=== PATIENT | male | born 1970 | race Caucasian/White ===

== ENCOUNTER 2017-12-01 19:17 | Emergency (ER) | payer MEDICAID ==
[~2017-12-01] VITALS: Ht 188 cm; Wt 93.7 kg
[2017-12-01 19:27] VITALS: BP 149/90
== END 2017-12-01 21:05 | disposition home or self-care (01) ==
LOC: ED 21:00
DX: M19.071 Primary osteoarthritis, right ankle and foot (principal); M19.072 Primary osteoarthritis, left ankle and foot; L40.0 Psoriasis vulgaris; F15.20 Other stimulant dependence, uncomplicated; I10 Essential (primary) hypertension; E11.9 Type 2 diabetes mellitus without complications; F17.200 Nicotine dependence, unspecified, uncomplicated; Z59.0 Homelessness
CPT/HCPCS: 99284

== ENCOUNTER 2018-11-06 16:13 | Inpatient (IN) | payer MEDICAID ==
[2018-11-05] MEDS: CEFTRIAXONE PMX 2GM/50ML 50 ML IV SCH (02:00)
[~2018-11-06] VITALS: Ht 188 cm; Wt 128.0 kg
[2018-11-06] MEDS ORDERED: HYDROmorphone 2 MG/ML, 1ML ONE (16:49)
[2018-11-06] MEDS ORDERED: MORPHINE SULFATE 4 MG/ML, 1ML IVPush PRN (17:00)
[2018-11-06] MEDS ORDERED: ONDANSETRON 2MG/ML, 2ML IVPush ONE (17:00)
[2018-11-06] MEDS ORDERED: HYDROmorphone 2 MG/ML, 1ML IM ONE (17:00)
[2018-11-06] MEDS ORDERED: SODIUM CHLORIDE FLUSH 10ML SYR IVF ONE (17:00)
--- NOTE | 2018-11-06 17:02 | NUR ---
REPORT FROM YARY CAMACHO RN. ASSUMED CARE OF PATIENT AT THIS TIME. PATIENT PRESENTS TO ED TODAY FOR ABD PAIN WITH NAUSEA, DENIES VOMITING/DIARRHEA. PATIENT GIVEN PAIN MEDICATION IM BY YARY RN. AWAITING PAIN MEDICATION TO HELP PRIOR TO STARTING IV. NO ADDITIONAL NEEDS AT THIS TIME.
[2018-11-06 17:09] LABS: ALANINE AMINOTRANSFERASE 47 U/L (12-78); ALBUMIN 4.5 g/dL (3.4-5.0); ANION GAP 10 mmol/L (5-15); CALCIUM 9.5 mg/dL (8.5-10.1); CHLORIDE 109 mmol/L (98-107); CREATININE 1.07 mg/dL (0.7-1.3); MEAN CORPUSCULAR HEMOGLOBIN 29.2 pg (27.5-34.5); MEAN CORPUSCULAR HGB CONC 33.5 g/dL (33.2-36.2); MEAN CORPUSCULAR VOLUME 87.2 fL (81-97); MEAN PLATELET VOLUME 8.1 fL (7.4-10.4); PLATELET COUNT 296 x10^3/uL (130-400); RED BLOOD COUNT 5.74 x10^6/uL (4.38-5.82)
[2018-11-06 17:12] LABS: ALKALINE PHOSPHATASE 78 U/L (45-117); BILIRUBIN,TOTAL 0.6 mg/dL (0.2-1.0); TOTAL PROTEIN 8.1 g/dL (6.4-8.2)
--- NOTE | 2018-11-06 17:12 | NUR ---
PATIENT IN CT, CT CALLED REGARDING NO IV STARTED AT THIS TIME, CT STARTING IV FOR CT SCAN. AWAITING PATIENT TO ARRIVE BACK IN DEPARTMENT PRIOR TO GIVING MEDICATIONS.
[2018-11-06] MEDS ORDERED: NITROGLYCERIN SINGLE TAB 0.4 MG SL ONE (17:30)
[2018-11-06] MEDS ORDERED: ASPIRIN 81 MG TABLET CHEW PO ONE (17:30)
[2018-11-06] MEDS ORDERED: OMNIPAQUE 350 MG/ML, 100ML BOTTLE ONE (17:43)
[2018-11-06 17:45] LABS: BASOPHILS # (AUTO) 0.09 x10^3/uL (0-0.1); BASOPHILS % (AUTO) 1 % (0-1); EOSINOPHILS % (AUTO) 1 % (1-7); LYMPHOCYTES % (AUTO) 14 % (22-44); MD SCAN; MONOCYTES % (AUTO) 3 % (2-9); NEUTROPHILS # (AUTO) 15.34 x10^3/uL (1.8-6.8); NEUTROPHILS % (AUTO) 82 % (42-75)
[2018-11-06 17:48] LABS: INTERNATIONAL NORMALIZED RATIO 0.99 (0.93-1.1); PROTHROMBIN TIME 10.4 Seconds (9.6-11.5)
[2018-11-06] MEDS ORDERED: HEPARIN 25,000 UNITS/500ML PMX 500 ML IV PRN (18:00)
[2018-11-06] MEDS ORDERED: HEPARIN 5,000 UNITS/ML, 1ML IV ONE (18:00)
[2018-11-06] MEDS ORDERED: HEPARIN 5,000 UNITS/ML, 1ML IV PRN (18:00)
--- NOTE | 2018-11-06 18:02 | NUR ---
PATIENT BACK FROM CT, PATIENT REPORTS PAIN NOW A 3/10, DOWN FROM 10/10, VS UPDATED IN CHART, IV ESTABLISHED IN CT, AWAITING RESULTS. PATIENT SITTING IN GURNEY SPEAKING WITH FAMILY AT BEDSIDE, CALL LIGHT WITHIN REACH.
--- NOTE | 2018-11-06 18:24 | NUR ---
RESULTS BACK, CHART UP FOR RECHECK.
[2018-11-06] MEDS ORDERED: MORPHINE SULFATE 4 MG/ML, 1ML ONE (19:00)
--- NOTE | 2018-11-06 19:08 | NUR ---
PATIENT AMB WITH STEADY GAIT TO BATHROOM, PATIENT BACK TO BED, PATIENT REPORTS PAIN 5/10 AT THIS TIME, MORPHINE ADMINISTERED PER MD ORDER, VS UPDATED IN CHART, ADMIT ORDER IN, AWAITING BED ASSIGNMENT. PATIENT SITTING IN [facility].
--- NOTE | 2018-11-06 19:10 | NUR ---
called sukh from [facility] transfer center. They are refusing this patient for transfer.
--- NOTE | 2018-11-06 19:11 | NUR ---
Elvira from [facility] called for admission transfer. They are refusing this pt.
--- NOTE | 2018-11-06 19:56 | NUR ---
REPORT TO RAFAEL LAM.
--- NOTE | 2018-11-06 20:06 | NUR ---
PATIENT BEING TRANSFERRED/ADMITTED TO HOSPITAL BED AT THIS TIME.
[2018-11-06 20:35] VITALS: BP 139/93
[2018-11-06] MEDS ORDERED: morphine SULFATE 10 MG/ML, 1ML IVPush PRN (21:00)
[2018-11-06] MEDS ORDERED: ONDANSETRON 2MG/ML, 2ML IVPush PRN (21:00)
[2018-11-06] MEDS ORDERED: LABETALOL 5 MG/ML SYRINGE IVPush PRN (21:00)
[2018-11-06] MEDS ORDERED: ACETAMINOPHEN 325 MG TABLET PO PRN (21:00)
[2018-11-06] MEDS ORDERED: PROMETHAZINE 25 MG/ML, 1ML IM PRN (21:00)
[2018-11-06] MEDS ORDERED: hydrALAzine 20 MG/ML, 1ML IVPush PRN (21:00)
[2018-11-06] MEDS ORDERED: KETOROLAC 30 MG/1 ML IV PRN (21:00)
[2018-11-06] MEDS ORDERED: ONDANSETRON ODT 4 MG PO PRN (21:00)
[2018-11-06 21:25] LABS: C-REACTIVE PROTEIN, QUANT 0.33 mg/dL (0.02-0.49)
[2018-11-06 21:33] LABS: HEMOGLOBIN A1C 5.3 % (4.2-6.3)
[2018-11-06 21:34] LABS: FREE T4 (FREE THYROXINE) 0.92 ng/dL (0.76-1.46); THYROID STIMULATING HORMONE 1.84 mIU/L (0.358-3.740)
[2018-11-06] MEDS: METRONIDAZOLE PMX 500MG/100ML 100 ML IV SCH (22:21)
[2018-11-06] MEDS: D5%-0.9% NACL 1,000 ML IV SCH (22:21)
[2018-11-07 01:58] VITALS: BP 134/91
[2018-11-07 05:04] LABS: BASOPHILS # (AUTO) 0.04 x10^3/uL (0-0.1); BASOPHILS % (AUTO) 1 % (0-1); EOSINOPHILS # (AUTO) 0.27 x10^3/uL (0-0.4); EOSINOPHILS % (AUTO) 3 % (1-7); LYMPHOCYTES # (AUTO) 2.64 x10^3/uL (1-3.4); LYMPHOCYTES % (AUTO) 33 % (22-44); MD NO; MEAN CORPUSCULAR HEMOGLOBIN 28.5 pg (27.5-34.5); MEAN CORPUSCULAR HGB CONC 33.5 g/dL (33.2-36.2); MEAN CORPUSCULAR VOLUME 85.1 fL (81-97); MEAN PLATELET VOLUME 7.6 fL (7.4-10.4); MONOCYTES # (AUTO) 0.43 x10^3/uL (0.2-0.8); MONOCYTES % (AUTO) 5 % (2-9); NEUTROPHILS # (AUTO) 4.59 x10^3/uL (1.8-6.8); NEUTROPHILS % (AUTO) 58 % (42-75); PLATELET COUNT 217 x10^3/uL (130-400); RED BLOOD COUNT 4.99 x10^6/uL (4.38-5.82); RED CELL DISTRIBUTION WIDTH 14.3 % (9.4-14.8)
[2018-11-07 05:16] LABS: ALBUMIN 3.2 g/dL (3.4-5.0); ANION GAP 5 mmol/L (5-15); CHLORIDE 106 mmol/L (98-107)
[2018-11-07 05:19] LABS: ALANINE AMINOTRANSFERASE 31 U/L (12-78); ALKALINE PHOSPHATASE 54 U/L (45-117); BILIRUBIN,TOTAL 0.7 mg/dL (0.2-1.0); CHOL/HDL RATIO 3.4; CHOLESTEROL, TOTAL 138 mg/dL (140-239); CREATININE 0.83 mg/dL (0.7-1.3); HDL CHOL % 30 % (26-37); HDL CHOLESTEROL (DIRECT) 41 mg/dL (40-60); LDL CHOLESTEROL,CALCULATED 76 mg/dL (54-169); LDL/HDL RATIO 1.9 (0.5-3.0); TOTAL PROTEIN 6.4 g/dL (6.4-8.2); TRIGLYCERIDES 104 mg/dL (50-200); VLDL CHOLESTEROL 21 mg/dL (0-25)
[2018-11-07] MEDS: METRONIDAZOLE PMX 500MG/100ML 100 ML IV SCH ×3 (05:59→21:10)
[2018-11-07 06:23] LABS: MICROSCOPIC NOT IND
[2018-11-07 06:28] LABS: CULTURE INDICATED? NO
[2018-11-07 07:50] VITALS: BP 125/80
[2018-11-07] MEDS: D5%-0.9% NACL 1,000 ML IV SCH ×2 (08:26→17:28)
[2018-11-07 13:26] LABS: CLOSTRIDIUM DIFFICILE ANTIGEN NEGATIVE; CLOSTRIDIUM DIFFICILE TOXIN NEGATIVE (Negative); CRYPTOSPORIDIUM ANTIGEN Negative (Negative)
[2018-11-07 13:49] VITALS: BP 130/88
[2018-11-07 20:30] VITALS: BP 138/78
[2018-11-08] MEDS: CEFTRIAXONE PMX 2GM/50ML 50 ML IV SCH (01:38)
[2018-11-08] MEDS: D5%-0.9% NACL 1,000 ML IV SCH (01:38)
[2018-11-08 02:34] VITALS: BP 148/89
[2018-11-08] MEDS: METRONIDAZOLE PMX 500MG/100ML 100 ML IV SCH ×2 (05:10→13:38)
[2018-11-08 07:41] VITALS: BP 125/76
[2018-11-08 12:30] VITALS: BP 150/108
[2018-11-08] MEDS ORDERED: CEFD300C37 PO (13:22)
[2018-11-08] MEDS ORDERED: METR500T PO (13:22)
[2018-11-08] MEDS ORDERED: LOSA25TA25 PO (13:23)
== END 2018-11-08 14:10 | disposition home or self-care (01) | DRG 392 ==
LOC: ED 18:42 → 4NOR 20:32
PROVIDERS: ADMIT Internal Medicine; ATTEND Internal Medicine
DX: K52.9 Noninfective gastroenteritis and colitis, unspecified (principal); E11.9 Type 2 diabetes mellitus without complications; F17.210 Nicotine dependence, cigarettes, uncomplicated; I10 Essential (primary) hypertension; J45.909 Unspecified asthma, uncomplicated
CPT/HCPCS: 36415; 87046; 87427; 99285; J7042; 74177; 80053; 80061; 81003; 83036; 83690; 83735; 84439; 84443; 85025; 85520; 85610; 85651; 86140; 87324; 87328; 87329; 93005; 96365; 96372; G0378; J0696; J1170; Q9967